=== PATIENT | female | born 1960 | race Two or more races ===

== ENCOUNTER 2018-07-08 13:05 | Inpatient (IN) | payer MEDICARE, MEDICAID ==
[~2018-07-08] VITALS: Ht 167.6 cm; Wt 60.3 kg
[2018-07-08 13:50] VITALS: BP 148/90
--- NOTE | 2018-07-08 13:50 | NUR ---
GPS ACADEMIC SPECIALIST: ADMISSION ADMITTED THIS 57 YEAR OLD FEMALE PT FROM [facility] ON A 72 HOUR HOLD FOR GD, DTS, AND DEPRESSION. AWAKE, A/OX4, ABLE TO AMBULATE. DENIES SI/HI AT THIS TIME. PT CRIES FROM TIME TO TIME, APPEARS DEPRESSED. ORIENTED TO ROOM AND SURROUNDINGS. PT HAS HX: CHRONIC BACK PAIN. VSS. NO DISTRESS NOTED. WILL CONTINUE TO MONITOR.
[2018-07-08] MEDS ORDERED: ACETAMINOPHEN 325 MG TABLET PO PRN (14:00)
[2018-07-08] MEDS ORDERED: MAGNESIUM HYDROXIDE 30 ML UDC PO PRN (14:00)
[2018-07-08] MEDS ORDERED: MAG HYDROX/AL HYDROX/SIMETH 30 ML UDC PO PRN (14:00)
[2018-07-08] MEDS ORDERED: DULO20CA PO (14:21)
[2018-07-08] MEDS ORDERED: TRAM50TA2 PO (14:21)
[2018-07-08] MEDS ORDERED: NICO1PAT44 TD (14:21)
[2018-07-08] MEDS ORDERED: FAMO-131 PO (14:21)
[2018-07-08] MEDS ORDERED: IBUP-1953 PO (14:21)
[2018-07-08] MEDS ORDERED: ALPR0.5T8 PO (14:21)
[2018-07-08] MEDS ORDERED: ZOLP10TA2 PO (14:21)
[2018-07-08] MEDS ORDERED: ESCI20TA PO (14:21)
[2018-07-08] MEDS ORDERED: OXYC-128 PO (14:21)
[2018-07-08] MEDS ORDERED: SENN-168 PO (14:21)
[2018-07-08] MEDS ORDERED: OXCA300T4 PO (14:21)
[2018-07-08] MEDS ORDERED: IBUP-1955 PO (14:26)
[2018-07-08] MEDS ORDERED: HYDR-4303 PO (14:26)
--- NOTE | 2018-07-08 16:00 | NUR ---
gps toll transmission worker: md visit seen and admitted by arvind morrison ([facility]) at this time.
[2018-07-08] MEDS ORDERED: IBUPROFEN 600 MG TABLET PO PRN (16:30)
[2018-07-08] MEDS: SENNOSIDES 8.6 MG TABLET PO SCH (17:06)
[2018-07-08] MEDS: FAMOTIDINE (20 MG) 20 MG TABLET PO SCH (17:06)
[2018-07-08] MEDS: LORAZEPAM 0.5 MG TABLET PO PRN (17:07)
[2018-07-08] MEDS: NICOTINE PATCH (14MG) 14 MG PATCH.TD24 TD SCH (17:07)
[2018-07-08] MEDS: oxyCODONE/APAP (5/325 MG) 1 UDTAB TABLET PO PRN (17:07)
[2018-07-08 20:08] VITALS: BP 133/94
[2018-07-09] MEDS: oxyCODONE/APAP (5/325 MG) 1 UDTAB TABLET PO PRN ×2 (06:55→16:14)
[2018-07-09 07:28] LABS: BILIRUBIN,TOTAL 0.5 mg/dL (0.2-1.0); CALCIUM, SERUM 9.1 mg/dL (8.5-10.1); CREATININE 0.7 mg/dL (0.6-1.3); POTASSIUM 3.8 mmol/L (3.5-5.1); TOTAL PROTEIN, SERUM 7.4 g/dL (6.4-8.2)
[2018-07-09 08:00] VITALS: BP 130/75
[2018-07-09] MEDS: FAMOTIDINE (20 MG) 20 MG TABLET PO SCH ×2 (08:07→16:14)
[2018-07-09] MEDS: NICOTINE PATCH (14MG) 14 MG PATCH.TD24 TD SCH (08:07)
[2018-07-09] MEDS: SENNOSIDES 8.6 MG TABLET PO SCH ×2 (08:07→16:14)
[2018-07-09] MEDS: LORAZEPAM 0.5 MG TABLET PO PRN ×2 (08:39→19:31)
--- NOTE | 2018-07-09 09:51 | NUR ---
WOUND CARE CONSULT: PT PRESENTS AMBULATORY AND CONTINENT WITH BRUISING AND SURGICAL SCARS TO LOWER BACK, SACRAL AND BUTTOCK AREAS, PRESENT ON ADMISSION. WILL SEE PRN.
[2018-07-09 16:00] VITALS: BP 113/62
--- NOTE | 2018-07-09 16:21 | NUR ---
GROUP NOTE: SW prompted pt to participate in group therapy. Pt refused and stated she was feeling sad and depressed and that all she wanted to do was sleep. SW encouraged participation and pt refused to leave her room.
[2018-07-09] MEDS ORDERED: DULOXETINE HCL 30 MG CAPSULE.DR PO SCH (17:00)
[2018-07-09 19:58] VITALS: BP 120/78
[2018-07-10 08:00] VITALS: BP 117/74
[2018-07-10] MEDS: SENNOSIDES 8.6 MG TABLET PO SCH ×2 (09:23→16:06)
[2018-07-10] MEDS: LORAZEPAM 0.5 MG TABLET PO PRN ×2 (09:24→18:49)
[2018-07-10] MEDS: FAMOTIDINE (20 MG) 20 MG TABLET PO SCH ×2 (09:24→16:06)
[2018-07-10] MEDS: NICOTINE PATCH (14MG) 14 MG PATCH.TD24 TD SCH (09:24)
--- NOTE | 2018-07-10 10:47 | NUR ---
INITIAL DISCHARGE PLAN: Patient wishes to return to her sober living home [address] [place] [address] . SW will help form a safe and proper discharge in collaboration with .
--- NOTE | 2018-07-10 10:47 | NUR ---
SW attempted to contact pts friend Shannon [phone]; number no longer in service.
--- NOTE | 2018-07-10 10:47 | NUR ---
PADMINI attempted to contact pt daughter Mariana [phone], number no longer in service.
[2018-07-10] MEDS: oxyCODONE/APAP (5/325 MG) 1 UDTAB TABLET PO PRN ×2 (12:59→21:51)
--- NOTE | 2018-07-10 12:59 | NUR ---
RN NOTES ADMINISTERED PERCOCET 5/325 MG PO PRN FOR LOWER BACK PAIN 11/05 PER PATIENT REQUEST, V/S STABLE, CONTINUED MONITORING.
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
[2018-07-10 16:00] VITALS: BP 154/95
[2018-07-10] MEDS: TRAMADOL HCL 50 MG TABLET PO PRN (16:07)
--- NOTE | 2018-07-10 16:07 | NUR ---
RN NOTES ADMINISTERED ULTRAM 50 MG PO PRN FOR FOR PAIN 09/04 PER PATIENT REQUEST. CONTINUED MONITORING.
--- NOTE | 2018-07-10 18:49 | NUR ---
RN NOTES ADMINISTERED ATIVAN 0.5 MG PO PRN FOR ANXIETY, PER PATIENT REQUEST. V/S TAKEN BP 152/95, P-86, CONTINUED MONITORING.
--- NOTE | 2018-07-10 19:30 | NUR ---
GPS RN NOTE, RECEIVED PATIENT AWAKE AND IN ROOM NO S/S OR COMPLAINTS OF PAIN AT THIS TIME. PATIENT IS DISPLAYING NO S/S OF APPARENT DISTRESS AT THIS TIME. PATIENT BREATHING IS UNLABORED WITH EQUAL RISE AND FALL OF THE CHEST. PATIENT IS ALERT AND ORIENTED X 3 ON ROOM AIR WITH A SPO2 OF 96%. PATIENT IS BRIGHT, DISORGANIZED, ANXIOUS, COOPERATIVE, DEMANDING, MED SEEKING, AND NEEDS REORIENTATION. PATIENT DENIES SUICIDE AND HOMICIDAL IDEATIONS AT THIS TIME. PATIENT ASSISTED WITH TURNING AND REPOSITIONING Q2HR AND PRN FOR COMFORT AND CIRCULATION. PATIENT HAS NO NEEDS AT THIS TIME. PATIENT EDUCATED ON THE USE OF THE CALL DUTTON. PATIENT BED SIDE RAILS ARE UP X 2 FOR SAFETY, BED IS LOCKED AND LOW. WILL CONTINUE TO MONITOR AND MAINTAIN SAFETY Q15 MIN WITH THE HELP OF STAFF.
[2018-07-10 20:13] VITALS: BP 133/87
[2018-07-10] MEDS: DIVALPROEX SODIUM 250 MG TABLET.DR PO SCH (20:21)
[2018-07-11] MEDS: TEMAZEPAM 7.5 MG CAPSULE PO PRN ×2 (00:14→21:53)
[2018-07-11 08:00] VITALS: BP 109/64
[2018-07-11] MEDS: SENNOSIDES 8.6 MG TABLET PO SCH ×2 (08:58→16:41)
[2018-07-11] MEDS: DIVALPROEX SODIUM 250 MG TABLET.DR PO SCH ×3 (08:58→20:23)
[2018-07-11] MEDS: FAMOTIDINE (20 MG) 20 MG TABLET PO SCH ×2 (08:58→16:41)
[2018-07-11] MEDS: NICOTINE PATCH (14MG) 14 MG PATCH.TD24 TD SCH (08:58)
[2018-07-11] MEDS: oxyCODONE/APAP (5/325 MG) 1 UDTAB TABLET PO PRN ×2 (12:00→23:44)
--- NOTE | 2018-07-11 15:50 | NUR ---
GROUP NOTE: Pt attended a group session on 07/11/18 at 2:00PM discussing the problem of discharge planning. S: "I thought I was leaving tomorrow but you just crushed me. I'm fine I'm not benefiting from being here. I can take care of myself at home." O: Pt was crying and was hyperverbal and her mood was labile. Pt has lack of insight and was denying her reason for hospitalization. SW pointed out that she had been crying yesterday after her Benzodiazepine was not given to her and pt stated that was not true and that she did not remember crying at all. A: Pt presented with poor lack of insight and also expressed that she admitted that she drinks when she can't cope this things. Pt also expressed feelings of guilt and saying she had "messed up." P: Pt will continue milieu treatment and medication compliance.
[2018-07-11 16:00] VITALS: BP 106/59
--- NOTE | 2018-07-11 18:13 | NUR ---
RN GPS NOTES PT AWAKE, ALERT AND VERBALLY RESPONSIVE, DENIES PAIN AT THIS TIME, TOLERATING CURRENT DIET WELL, PM MEDS GIVEN, NEEDS ATTENDED, SAFETY PRECAUTIONS OBSERVED.
[2018-07-11] MEDS: TRAMADOL HCL 50 MG TABLET PO PRN (18:44)
[2018-07-11 20:00] VITALS: BP 140/97
--- NOTE | 2018-07-11 23:46 | NUR ---
RN NOTES COMPLAINED OF TERRIBLE PAIN ON HER BACK- PERCOCET 5/325MG PO GIVEN ORDERED, V/S STABLE
[2018-07-12 08:00] VITALS: BP 129/83
[2018-07-12] MEDS: FAMOTIDINE (20 MG) 20 MG TABLET PO SCH ×2 (08:24→16:41)
[2018-07-12] MEDS: oxyCODONE/APAP (5/325 MG) 1 UDTAB TABLET PO PRN ×2 (08:24→16:42)
[2018-07-12] MEDS: DIVALPROEX SODIUM 250 MG TABLET.DR PO SCH ×3 (08:24→19:55)
[2018-07-12] MEDS: NICOTINE PATCH (14MG) 14 MG PATCH.TD24 TD SCH (08:24)
[2018-07-12] MEDS: SENNOSIDES 8.6 MG TABLET PO SCH ×2 (08:26→16:42)
[2018-07-12 08:30] VITALS: BP 127/83
--- NOTE | 2018-07-12 09:29 | NUR ---
PT IN HER ROOM, ALERT, CALM AND COOPERATIVE WITH CARE, AMBULATES WITH STEADY GAIT, INTERACTS WITH STAFF WELL, SAFETY PRECAUTIONS OBSERVED. PT GIVEN PERCOCET
[2018-07-12] MEDS: LORAZEPAM 0.5 MG TABLET PO PRN ×2 (10:34→22:33)
--- NOTE | 2018-07-12 11:04 | NUR ---
PT HAS CONCERNS FOR PAIN TO RIGHT FOOT MD CARTER EVALUATED PT AND WILL MAKE REFFERAL AFTER DISCHARGE
[2018-07-12 16:00] VITALS: BP 122/84
--- NOTE | 2018-07-12 16:00 | NUR ---
Group Note: Pt was encouraged by the SW to attend group but the pt stated that she was feeling tired and that she wanted to continue sleeping in her room.
[2018-07-12 17:00] VITALS: BP_SYST 122; BP_SYST 127; BP_DIAS 84; BP_DIAS 88
[2018-07-12] MEDS: TRAMADOL HCL 50 MG TABLET PO PRN (19:53)
[2018-07-12 20:00] VITALS: BP 116/66
[2018-07-13 07:01] LABS: ALBUMIN 3.1 g/dL (3.4-5.0); BILIRUBIN,TOTAL 0.5 mg/dL (0.2-1.0); CALCIUM, SERUM 9.2 mg/dL (8.5-10.1); CREATININE 0.8 mg/dL (0.6-1.3); POTASSIUM 4.2 mmol/L (3.5-5.1); TOTAL PROTEIN, SERUM 7.7 g/dL (6.4-8.2)
[2018-07-13 08:00] VITALS: BP 101/59
[2018-07-13] MEDS: FAMOTIDINE (20 MG) 20 MG TABLET PO SCH ×2 (09:20→16:12)
[2018-07-13] MEDS: SENNOSIDES 8.6 MG TABLET PO SCH ×2 (09:20→16:12)
[2018-07-13] MEDS: DIVALPROEX SODIUM 250 MG TABLET.DR PO SCH ×3 (09:20→21:42)
[2018-07-13] MEDS: NICOTINE PATCH (14MG) 14 MG PATCH.TD24 TD SCH (09:20)
[2018-07-13 16:00] VITALS: BP 126/74
[2018-07-13] MEDS: LORAZEPAM 0.5 MG TABLET PO PRN ×2 (16:12→21:42)
--- NOTE | 2018-07-13 16:33 | NUR ---
GPS/RN-NOTES PATIENT STATED" I'M SHAKING AND ANXIOUS I NEED ATIVAN ". ATIVAN 0.5MG P.O GIVEN PRN ORDER. WILL CONT. MONITORING FOR SAFETY AND BEHAVIOR.
--- NOTE | 2018-07-13 17:35 | NUR ---
GPS/RN-NOTES PATIENT WATCHING TV IN THE DAY ROOM,CALM NO ACUTE DISTRESS NOTED.
[2018-07-13] MEDS: oxyCODONE/APAP (5/325 MG) 1 UDTAB TABLET PO PRN (17:45)
--- NOTE | 2018-07-13 17:47 | NUR ---
GPS/RN-NOTES PATIENT C/O 9/10 LOWER BACK PAIN AND REQUESTING FOR PERCOCET. PERCOCET 5/325MG 1 TAB P.O GIVEN PRN ORDER. WILL CONT. MONITORING FOR SAFETY AND BEHAVIOR.
--- NOTE | 2018-07-13 19:30 | NUR ---
GPS RN NOTE, RECEIVED PATIENT AWAKE AND IN ROOM HAS A COMPLAINT OF LOWER BACK PAIN AT 6 OUT 10 ON THE PAIN SCALE. PATIENT IS TAKING ORAL PAIN MEDICATION FOR THIS PAIN. PATIENT IS DISPLAYING NO S/S OF APPARENT DISTRESS AT THIS TIME. PATIENT BREATHING IS UNLABORED WITH EQUAL RISE AND FALL OF THE CHEST. PATIENT IS ALERT AND ORIENTED X 3 ON ROOM AIR WITH A SPO2 OF 98%. PATIENT IS BRIGHT, DISORGANIZED, ANXIOUS, COOPERATIVE, DEMANDING, MED SEEKING, AND NEEDS REORIENTATION. PATIENT DENIES SUICIDE AND HOMICIDAL IDEATIONS AT THIS TIME. PATIENT ASSISTED WITH TURNING AND REPOSITIONING Q2HR AND PRN FOR COMFORT AND CIRCULATION. PATIENT HAS NO NEEDS AT THIS TIME. PATIENT EDUCATED ON THE USE OF THE CALL DUTTON. PATIENT BED SIDE RAILS ARE UP X 2 FOR SAFETY, BED IS LOCKED AND LOW. WILL CONTINUE TO MONITOR AND MAINTAIN SAFETY Q15 MIN WITH THE HELP OF STAFF.
[2018-07-13] MEDS: TRAMADOL HCL 50 MG TABLET PO PRN (19:56)
--- NOTE | 2018-07-13 19:56 | NUR ---
GPS RN NOTE, PATIENT HAS A COMPLAINT OF LOWER BACK PAIN AT 4 OUT 10 ON THE PAIN SCALE AND IS REQUESTING ULTRAM AT THIS TIME. PATIENT VITAL SIGNS ARE STABLE. GAVE ULTRAM 50MG PO Q6HR PRN ORDERED. WILL REASSESS PAIN AND I WILL CONTINUE TO MONITOR THIS PATIENT.
[2018-07-13 20:00] VITALS: BP 110/77
--- NOTE | 2018-07-13 21:42 | NUR ---
GPS RN NOTE, PATIENT HAS A COMPLAINT OF FEELING ANXIOUS AND IS REQUESTING ATIVAN AT THIS TIME. PATIENT VITAL SIGNS ARE STABLE. GAVE ATIVAN 0.5MG PO Q6HR PRN ORDERED. WILL REASSESS ANXIETY AND I WILL CONTINUE TO MONITOR THIS PATIENT.
--- NOTE | 2018-07-13 21:42 | NUR ---
GPS RN NOTE, PATIENT HAS A COMPLAINT OF NOT BEING ABLE TO SLEEP AND IS REQUESTING RESTORIL AT THIS TIME. PATIENT VITAL SIGNS ARE STABLE. GAVE RESTORIL 7.5 MG PO HS ORDERED. WILL REASSESS FOR INSOMNIA AND I WILL CONTINUE TO MONITOR THIS PATIENT. Addendum: 07/13/18 at 2340 by MIRIAM NORRIS RN GIVEN AT 6114, DISREGARD 3
[2018-07-13] MEDS: TEMAZEPAM 7.5 MG CAPSULE PO PRN (23:36)
[2018-07-14 06:45] LABS: BASOPHILS % (AUTO) 0.6 % (0.0-2.0); EOSINOPHILS % (AUTO) 2.3 % (0.0-6.0); HEMATOCRIT 37 % (33-45); HEMOGLOBIN 12.9 g/dL (11.5-14.8); LYMPHOCYTES # (AUTO) 2.9 /CMM (0.8-4.8); LYMPHOCYTES % (AUTO) 48.1 % (20.0-44.0); MEAN CORPUSCULAR HGB CONC 35 g/dl (31.0-36.0); MEAN CORPUSCULAR VOLUME 93 fL (82-100); MONOCYTES # (AUTO) 0.6 /CMM (0.1-1.30); MONOCYTES % (AUTO) 9.9 % (2.0-12.0); NEUTROPHILS # (AUTO) 2.3 /CMM (1.8-8.9); NEUTROPHILS % (AUTO) 39.1 % (43.0-81.0); PLATELET COUNT (AUTO) 177 /CMM (150-450); RED BLOOD CELL COUNT(AUTO) 4.01 MIL/uL (4.0-5.2)
[2018-07-14 08:00] VITALS: BP 103/62
[2018-07-14] MEDS: DIVALPROEX SODIUM 250 MG TABLET.DR PO SCH ×3 (08:18→21:25)
[2018-07-14] MEDS: FAMOTIDINE (20 MG) 20 MG TABLET PO SCH ×2 (08:18→16:40)
[2018-07-14] MEDS: NICOTINE PATCH (14MG) 14 MG PATCH.TD24 TD SCH (08:18)
[2018-07-14] MEDS: SENNOSIDES 8.6 MG TABLET PO SCH ×2 (08:18→16:41)
[2018-07-14] MEDS: oxyCODONE/APAP (5/325 MG) 1 UDTAB TABLET PO PRN ×2 (12:17→18:49)
[2018-07-14] MEDS: LORAZEPAM 0.5 MG TABLET PO PRN (14:57)
[2018-07-14 16:00] VITALS: BP 111/71
[2018-07-14] MEDS: TRAMADOL HCL 50 MG TABLET PO PRN (18:30)
--- NOTE | 2018-07-14 18:49 | NUR ---
GPS RN NOTE, PATIENT HAS A COMPLAINT OF LOWER BACK PAIN AT 6 OUT 10 ON THE PAIN SCALE AND IS REQUESTING PERCOCET AT THIS TIME. PATIENT VITAL SIGNS ARE STABLE. GAVE PERCOCET 5/325 1 TAB PO Q4HR PRN ORDERED. WILL REASSESS PAIN AND I WILL CONTINUE TO MONITOR THIS PATIENT.
[2018-07-14] MEDS: TEMAZEPAM 7.5 MG CAPSULE PO PRN (21:26)
[2018-07-14 21:31] VITALS: BP 146/62
[2018-07-15] MEDS: oxyCODONE/APAP (5/325 MG) 1 UDTAB TABLET PO PRN ×3 (01:15→17:55)
[2018-07-15] MEDS: LORAZEPAM 0.5 MG TABLET PO PRN (08:30)
[2018-07-15] MEDS: SENNOSIDES 8.6 MG TABLET PO SCH ×2 (08:30→16:05)
[2018-07-15] MEDS: FAMOTIDINE (20 MG) 20 MG TABLET PO SCH ×2 (08:30→16:05)
[2018-07-15] MEDS: DIVALPROEX SODIUM 250 MG TABLET.DR PO SCH ×3 (08:30→20:55)
[2018-07-15] MEDS: NICOTINE PATCH (14MG) 14 MG PATCH.TD24 TD SCH (08:31)
[2018-07-15 09:08] VITALS: BP 105/65
--- NOTE | 2018-07-15 10:38 | NUR ---
GPS/RN-NOTES PATIENT C/O 10/05 GENERALIZED PAIN AND REQUESTING FOR PERCOCET. PERCOCET 5/325MG 1 TAB P.O GIVEN PRN ORDER. WILL CONT. MONITORING FOR SAFETY AND BEHAVIOR.
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
[2018-07-15] MEDS: TRAMADOL HCL 50 MG TABLET PO PRN ×2 (14:00→21:41)
[2018-07-15 16:00] VITALS: BP 147/90
--- NOTE | 2018-07-15 16:05 | NUR ---
Group Note: Pt attended a group session on 07/15/2018 at 2 PM to discuss patients' feelings about being at [facility] and plans after discharge S = Pt. stated, "I am here because I made a mistake and drank too much. I am angry at the hospital staff because they lied to me, that I was going to be discharged today. I do not trust them anymore. My daughter is outside waiting for my discharge and I am here. I am angry I can't smoke. I don't want to talk about it" O- Pt. Refused to participate at first and had an angry affect. She warmed up to the group and talked about her issues. Pt's mood fluctuated from angry, to calm, to emotional and to flat affect. Pt. covered her head, walked out and came back several times during session. A -Pat. needs to take her medication to stabilize mood, as pt was diagnosed with Bipolar disease ( pt. denies being bipolar). Pt. needs referral to mental health professionals to learn healthy coping skills, and manage symptoms. P- Patient will continue with treatment and medication stabilization.
--- NOTE | 2018-07-15 17:55 | NUR ---
GPS/RN-NOTES PATIENT C/O 11/05 GENERALIZED PAIN AND REQUESTING FOR PERCOCET. PERCOCET 5/325MG 1 TAB P.O GIVEN PRN ORDER. WILL CONT. MONITORING FOR SAFETY AND BEHAVIOR.
[2018-07-15 20:48] VITALS: BP 160/85
[2018-07-16 08:00] VITALS: BP 135/101
[2018-07-16] MEDS: NICOTINE PATCH (14MG) 14 MG PATCH.TD24 TD SCH (08:24)
[2018-07-16] MEDS: FAMOTIDINE (20 MG) 20 MG TABLET PO SCH (08:24)
[2018-07-16] MEDS: DIVALPROEX SODIUM 250 MG TABLET.DR PO SCH (08:24)
[2018-07-16] MEDS: SENNOSIDES 8.6 MG TABLET PO SCH (08:24)
--- NOTE | 2018-07-16 09:00 | NUR ---
GPS/RN-NOTES ARTERIAL DPLR TO BOTH LOWER EXTREMITY WAS NOT DONE AT THIS TIME . ARTIST'S MODEL WAS NOT ABLE TO RUN OR DO THE TEST.
--- NOTE | 2018-07-16 10:50 | NUR ---
GPS/RN-NOTES PATIENT DISCHARGE TO HOME TODAY. DR. MICHAEL ( PSYCHIATRIST) AND ( RECREATIONAL VEHICLE REPAIRER) AWARE AND AGREES OF PATIENT DISCHARGE WITH ORDERS. DISCHARGE MEDICATION WAS REVIEWED WITH THE PATIENT WITH UNDERSTANDING ALSO INSTRUCTED PATIENT TO F/U WITH PRIMARY PHYSICIAN AND PSYCHIATRIST AND GO TO THE NEAREST EMERGENCY FACILITY OR CALL 911 FOR EMERGENCY.PATIENT SIGNS ALL DISCHARGE PAPERS ,RX WAS GIVEN TO THE PATIENT, PATIENT DID NOT VERBALIZE SI/HI,DENIES VISUAL/AUDITORY HALLUCINATIONS AT THE TIME OF DISCHARGE.PATIENT REFUSED TO HAVE PICTURE TAKEN ON RIGHT BUTTOCKS STATED" IT'S FINE,I DON'T HAVE ANYMORE PROBLEM ON MY BUTTOCKS NO MORE". PATIENT LEFT THE UNIT IN STABLE CONDITION, AMBULATORY WITH STEADY GAIT,LEFT WITH ALL BELONGINGS. 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
--- NOTE | 2018-07-16 10:52 | NUR ---
DISCHARGE NOTE: Pt will be discharged at 12:00pm via [facility] taxi voucher to pts sober living home [address] [place] [address] . No family to notify. Pts mood was anxious with congruent affect. Pt denied suicidal/homicidal ideation and denied visual/auditory hallucinations. Pt was given a referral to [facility] [address] [id number] and was encouraged to call to schedule an intake appointment on Tuesday July 17, 2018. Pt was also given a referral to [facility] Address: [address] [facility], [place] [address] . For smoking cessation, patient was referred to the [employer] and [employer] [id number]. Pt will also participate in a telephone meeting with [facility] [phone] on Tuesday July 17, 2018 at 8:00am. Patient was provided referrals to address her alcohol use. Patient was referred to the [facility] [address] [place] [address] / and was encouraged to present at 9am on Tuesday July 17, 2018. Additional resources included [facility] [address] [place] [address] and [facility] [address] [place] [address] . The multidisciplinary exit care form was done, printed, signed, and given to the patient.
--- NOTE | 2018-07-16 14:00 | NUR ---
GPS/RN-NOTES CALLED DPFran GEORGE AT ([phone])AND LEFT MS REGARDING HIS ORDER.DR. YUSUF RETURNED CALL AND AND RELAYED THE MESSAGE REGARDING DR. GEORGE ORDER WAS NOT DONE AND THAT THE PATIENT WAS DISCHARGE.PER DR. YUSUF STATED" CALL THE PATIENT AND GIVE THE OFFICE NUMBER TO FOLLOW UP. DID CALL PATIENT HOME PHONE ) ON FILE BUT NO ANSWER. CHARGE NURSE WAS AWARE.
== END 2018-07-16 10:50 | disposition home or self-care (01) | DRG 885 ==
LOC: GPS 13:24
PROVIDERS: ADMIT Psychiatry & Neurology Psychosomatic Medicine; ATTEND Internal Medicine
DX: F33.2 Major depressive disorder, recurrent severe without psychotic features (principal); F23 Brief psychotic disorder; I10 Essential (primary) hypertension; F17.210 Nicotine dependence, cigarettes, uncomplicated; E87.6 Hypokalemia; F41.9 Anxiety disorder, unspecified; G89.29 Other chronic pain; Z88.0 Allergy status to penicillin; M54.9 Dorsalgia, unspecified; Z96.643 Presence of artificial hip joint, bilateral; F15.10 Other stimulant abuse, uncomplicated; F10.20 Alcohol dependence, uncomplicated; F12.10 Cannabis abuse, uncomplicated; Z88.2 Allergy status to sulfonamides; F41.0 Panic disorder [episodic paroxysmal anxiety]; M21.6X1 Other acquired deformities of right foot; M20.41 Other hammer toe(s) (acquired), right foot; M20.31 Hallux varus (acquired), right foot; M21.171 Varus deformity, not elsewhere classified, right ankle
CPT/HCPCS: 36415; 80053-TC; 80061-TC; 80164-TC; 85025-TC; 87081-TC